=== PATIENT | female | born 1950 | race Caucasian/White ===

== ENCOUNTER 2020-06-26 16:22 | Emergency (ER) | payer OTHER, MEDICARE ==
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
[2020-06-26] MEDS ORDERED: Diphtheria,Pertussis(Acell),Tetanus Vaccine 0.5 ML Syringe IM ONE (18:10)
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
[2020-06-26] MEDS ORDERED: Acetaminophen/HYDROcodone 325-5 MG Tab PO ONE (18:19)
--- NOTE | 2020-06-27 09:18 | CR ---
CHEST: 2 view CLINICAL HISTORY:Dyspnea COMPARISON:None FINDINGS: The heart size, pulmonary vascularity and hilar structures are normal. No infiltrate effusion or pneumothorax is seen. There are atherosclerotic changes in the aorta. IMPRESSION: No acute cardiopulmonary process.
== END 2020-06-26 18:54 | disposition home or self-care (01) ==
LOC: JP.ED 16:22
DX: S16.1XXA Strain of muscle, fascia and tendon at neck level, initial encounter (principal); S81.811A Laceration without foreign body, right lower leg, initial encounter; S20.211A Contusion of right front wall of thorax, initial encounter; I10 Essential (primary) hypertension; E78.00 Pure hypercholesterolemia, unspecified; Z23 Encounter for immunization; Z87.891 Personal history of nicotine dependence; Z79.899 Other long term (current) drug therapy; V47.5XXA Car driver injured in collision with fixed or stationary object in traffic accident, initial encounter
CPT/HCPCS: 71046; 72125; 90471; 90715; 99285; A9270

== ENCOUNTER 2022-12-08 06:40 | Day surgery (SDC) | payer BC, MEDICARE ==
[2022-12-08] MEDS ORDERED: Propofol 200 MG/20 ML SDV ONE (07:15)
[2022-12-08] MEDS ORDERED: fentaNYL 50 MCG/ML SDV ONE (07:15)
[2022-12-08] MEDS ORDERED: Midazolam 1 MG/ML 2 ML SDV ONE (07:15)
[2022-12-08] MEDS ORDERED: Lactated Ringers 1,000 ML IV SCH (07:15)
== END 2022-12-08 09:30 | disposition home or self-care (01) ==
LOC: JP.SDS 06:40
PROVIDERS: ATTEND Student in an Organized Health Care Education/Training Program
DX: K29.50 Unspecified chronic gastritis without bleeding (principal); K44.9 Diaphragmatic hernia without obstruction or gangrene; K20.90 Esophagitis, unspecified without bleeding; K31.7 Polyp of stomach and duodenum; I10 Essential (primary) hypertension
CPT/HCPCS: 88305; 88342; 93005; J2250; J2704; J3010; J7120